=== PATIENT | male | born 1970 | race African-American/Black ===

== ENCOUNTER 2019-06-12 18:48 | Emergency (ER) | payer SELFPAY ==
[~2019-06-12] VITALS: Ht 172.7 cm; Wt 86.4 kg
[2019-06-12 18:50] VITALS: BP 141/103
== END 2019-06-12 20:57 | disposition left against medical advice (07) ==
LOC: EMS 18:59
DX: R06.02 Shortness of breath (principal); Z53.21 Procedure and treatment not carried out due to patient leaving prior to being seen by health care provider

== ENCOUNTER 2021-09-16 11:25 | Emergency (ER) | payer MEDICAID ==
[~2021-09-16] VITALS: Ht 170.2 cm; Wt 86.4 kg
[2021-09-16 11:41] VITALS: BP 130/79
[2021-09-16] MEDS ORDERED: CLIN-142 PO (12:10)
[2021-09-16] MEDS ORDERED: KETOROLAC TROMETHAMINE 30 MG/ML VIAL IM ONE (12:15)
[2021-09-16] MEDS ORDERED: CLINDAMYCIN HCL 150 MG CAPSULE PO ONE (12:15)
== END 2021-09-16 12:25 | disposition home or self-care (01) ==
LOC: EMS 11:25
DX: K08.89 Other specified disorders of teeth and supporting structures (principal); F17.210 Nicotine dependence, cigarettes, uncomplicated
CPT/HCPCS: 99283; 96372; J1885